=== PATIENT | female | born 1995 | race Two or more races ===

== ENCOUNTER 2017-11-11 20:43 | Emergency (ER) | payer OTHER ==
[~2017-11-11] VITALS: Ht 152.4 cm; Wt 68.0 kg
[2017-11-11 21:08] VITALS: BP 106/68
== END 2017-11-11 23:15 | disposition home or self-care (01) ==
LOC: ER 20:43
DX: S63.501A Unspecified sprain of right wrist, initial encounter (principal); W18.39XA Other fall on same level, initial encounter; Y93.89 Activity, other specified; Y92.89 Other specified places as the place of occurrence of the external cause; Y99.0 Civilian activity done for income or pay
CPT/HCPCS: 73110